=== PATIENT | female | born 1940 | race Caucasian/White ===

== ENCOUNTER 2016-08-14 11:30 | Day surgery (SDC) | payer OTHER ==
[~2016-08-14] VITALS: Ht 167.6 cm; Wt 71.0 kg
[~2016-08-14 11:30] MED LIST: LOPRESSOR50 MG PO; ZETIA10 MG PO
[2016-08-14 12:08] VITALS: BP 141/93
[2016-08-14] MEDS ORDERED: NORCO 5/3251 TABLET PO (16:17)
[2016-08-14 17:00] VITALS: BP 196/79
[2016-08-14 17:46] VITALS: BP 184/83
== END 2016-08-14 18:02 | disposition home or self-care (01) ==
LOC: SDC 11:30
PROC: 02HV33Z Insertion of Infusion Device into Superior Vena Cava, Percutaneous Approach (ICD-10-PCS; principal; 2016-08-14)
DX: C50.912 Malignant neoplasm of unspecified site of left female breast (principal); I10 Essential (primary) hypertension; E78.5 Hyperlipidemia, unspecified
CPT/HCPCS: 71010; C1751; J1200; J3370